=== PATIENT | male | born 1970 | race American Indian/Alaskan Native ===

== ENCOUNTER 2021-10-07 02:30 | Emergency (ER) | payer OTHER ==
[~2021-10-07] VITALS: Ht 175.3 cm; Wt 147.7 kg
[2021-10-07] MEDS ORDERED: TRULICITY1.5 MG/0.5 SQ (02:43)
[2021-10-07 02:44] VITALS: TEMP 97.8
[2021-10-07 04:16] VITALS: BP 136/85; PULSE 98
== END 2021-10-07 04:16 | disposition home or self-care (01) ==
LOC: COL.ER 02:30
DX: S81.011A Laceration without foreign body, right knee, initial encounter (principal); W01.0XXA Fall on same level from slipping, tripping and stumbling without subsequent striking against object, initial encounter; Y93.01 Activity, walking, marching and hiking